=== PATIENT | male | born 1960 | race Hispanic/Latino ===

== ENCOUNTER → 2018-02-09 | Day surgery (SDC) | payer OTHER ==
[~2018-02-09] MED LIST: ACETAMINOPHEN 1000 MG/100 ML 100 ML IV ONE; ACETAMINOPHEN 1000 MG/100 ML IV ONE; BUPIVACAINE HCL 0.5% INJ 30 ML VIAL INJ ONE; CLINDAMYCIN PHOS 900MG/ 50ML 50 ML IV ONE; DEXAMETHASONE SOD PHOS INJ 4 MG/ML VIAL ONE; FAMOTIDINE 20 MG/2 ML VIAL IV ONE; FENTANYL CITRATE/PF 100MCG/2 ML INJ ONE; LEVOTHYROXINE75 MCG PO; LIDOCAINE HCL 2% LOCAL INJ 5 ML SDV VIAL INJ ONE; LISINOPRIL10 MG PO; METOCLOPRAMIDE HCL 10 MG/2ML VIAL ONE; MIDAZOLAM HCL 2 MG/2 ML VIAL ONE; MORPHINE SULFATE INJ 4 MG/ML INJ ONE; NEOSTIGMINE 1 MG/ML 10ML VIAL ONE; PROPOFOL IV EMULSION 10 MG/ML 20 ML VIAL ONE; SEVOFLURANE INHAL SOLN 250 ML PEN BTL ONE; [UNRECOGNIZED DRUG - OTHER]
[2018-02-09 12:11] VITALS: BP 100/63
--- NOTE | 2018-02-09 12:35 | Operative Report ---
DATE OF PROCEDURE: February 09, 2018 PREOPERATIVE DIAGNOSES 1. Dislocated 4th proximal interphalangeal joint right foot. 2. 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 POSTOPERATIVE DIAGNOSES 1. Dislocated 4th proximal interphalangeal joint right foot. 1. 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 OPERATIONS PERFORMED 1. Arthrodesis proximal interphalangeal joint right foot. 2. Excision of neuroma 3rd interspace right foot. 3. Use of human allograft into the space of the neuroma to prevent adhesions, to promote healing, to decrease the inflammatory response. COMPLICATIONS: None. CONDITION: Stable. PROCEDURE IN DETAIL: Under mild sedation, patient was brought to the operating room and placed on the operating table in the supine position. Following IV sedation, anesthesia was obtained with a general anesthetic. At this point, the foot was scrubbed, prepped and draped in the usual aseptic manner. The pneumatic ankle tourniquet was inflated to 250 mmHg, and the leg was lowered to the table. Arthrodesis PIPJ 4th right. Attention was then directed to the dorsal aspect of the right foot where a linear incision was made overlying the PIPJ. The incision was deepened via sharp and blunt dissection, taking care to retract or cauterize neurovascular structures as necessary. It was deepened down to the level of the tendon. The extensor tendon was then tenotomized in a transverse fashion. The PIPJ was visualized. At this point there was noted to be a cyst that was passed from the operating table and sent for pathology. There was noted to be full dislocation and exostosis. Utilizing an oscillating saw, the joint was cleared for arthrodesis down to clean viable bleeding bone. Utilizing a 3.4 x 6 mm Trilliant hammertoe implant, it was used to fixate the hammertoe. The K-wire was inserted more proximal in order to keep the position while healing. The contraction was noted to be released, and there was noted to be anatomical alignment. Attention was then directed to the 3rd intermetatarsal space where a linear incision was made overlying the interspace. The incision was deepened via sharp and blunt dissection, taking care to retract or cauterize neurovascular structures as necessary. It was deepened down to the level of the intermetatarsal ligament. The intermetatarsal ligament was transected. The neuroma at that point was noted to be very friable at the 3rd intermetatarsal space. The neuroma and its remnants were then removed and were sent from the operating table and sent for pathology. The area was then flushed with copious amounts of normal sterile saline solution. The use of human allograft was then inserted into the 3rd intermetatarsal space in order to promote healing, to prevent adhesions, to help to decrease the inflammatory response. The incisions were then closed, closing the deepest layer with 3-0 Vicryl, then 4-0 Vicryl and 4-0 nylon. A clean dressing was applied consisting of Adaptic ointment, 4 x 4's, Kerlix and an Lawrence bandage. The tourniquet was deflated. There was noted to be a hyperemic response to all the digits. Patient tolerated the procedure and anesthesia well without complications, was transported to the recovery room with vital signs stable and neurovascular status intact to both feet. Patient will be discharged home when he meets criteria. They were given instructions to be nonweightbearing, to ice and elevate the foot while at rest, to follow up with me in the office and to call the office if any questions, concerns, or any problems arise. Job#: [id number]
== END | disposition home or self-care (01) ==
LOC: OR 08:31
PROVIDERS: ATTEND Podiatrist Foot & Ankle Surgery
DX: M20.41 Other hammer toe(s) (acquired), right foot (principal); G57.61 Lesion of plantar nerve, right lower limb; Z88.0 Allergy status to penicillin; Z88.8 Allergy status to other drugs, medicaments and biological substances; G47.33 Obstructive sleep apnea (adult) (pediatric); E66.01 Morbid (severe) obesity due to excess calories; K21.9 Gastro-esophageal reflux disease without esophagitis
CPT/HCPCS: 28080; 28285; 76000; 88304; 93005; J0131; J1100; J2001; J2250; J2270; J2704; J2710; J2765; Q4150

== ENCOUNTER 2021-05-26 01:22 | Emergency (ER) | payer SELFPAY ==
[~2021-05-26] VITALS: Ht 175.3 cm; Wt 117.9 kg
[~2021-05-26 01:22] MED LIST changes: -ACETAMINOPHEN 1000 MG/100 ML 100 ML IV ONE; -ACETAMINOPHEN 1000 MG/100 ML IV ONE; -BUPIVACAINE HCL 0.5% INJ 30 ML VIAL INJ ONE; -CLINDAMYCIN PHOS 900MG/ 50ML 50 ML IV ONE; -DEXAMETHASONE SOD PHOS INJ 4 MG/ML VIAL ONE; -FAMOTIDINE 20 MG/2 ML VIAL IV ONE; -FENTANYL CITRATE/PF 100MCG/2 ML INJ ONE; -LIDOCAINE HCL 2% LOCAL INJ 5 ML SDV VIAL INJ ONE; -METOCLOPRAMIDE HCL 10 MG/2ML VIAL ONE; -MIDAZOLAM HCL 2 MG/2 ML VIAL ONE; -MORPHINE SULFATE INJ 4 MG/ML INJ ONE; -NEOSTIGMINE 1 MG/ML 10ML VIAL ONE; -PROPOFOL IV EMULSION 10 MG/ML 20 ML VIAL ONE; -SEVOFLURANE INHAL SOLN 250 ML PEN BTL ONE
[2021-05-26] MEDS ORDERED: ONDANSETRON HCL INJ 2MG/ML 2ML 2 MG/ML VIAL IV STA (01:26)
[2021-05-26] MEDS ORDERED: SODIUM CHLORIDE 0.9% 1000ML 1,000 ML IV ONE (01:30)
[2021-05-26 02:00] LABS: BASOPHILS # (AUTO) 0.1 (0.0-0.1); BASOPHILS % 0.4 % (0.0-1.0); EOSINOPHILS # (AUTO) 0.1 (0.0-0.4); EOSINOPHILS % 0.9 % (0.0-6.0); HEMATOCRIT 44.4 % (38.2-49.6); HEMOGLOBIN 15.3 g/dL (14.0-18.0); LYMPHOCYTES # (AUTO) 2.8 (1.0-3.2); LYMPHOCYTES % 23.6 % (18.0-39.1); MEAN CORPUSCULAR HEMOGLOBIN 32.2 pg (28-32); MEAN CORPUSCULAR HGB CONC 34.5 g/dL (31-35); MEAN CORPUSCULAR VOLUME 93.5 fL (81-99); MONOCYTES # (AUTO) 0.7 (0.2-0.8); MONOCYTES % 5.5 % (4.4-11.3); NEUTROPHILS # (AUTO) 8.1 (2.1-6.9); NEUTROPHILS % 68.9 % (38.7-80.0); PLATELET COUNT 258 x10e3/uL (140-360); RED BLOOD COUNT 4.75 x10e6/uL (4.3-5.7)
[2021-05-26 02:15] LABS: ALBUMIN 4.3 g/dL (3.5-5.0); ALBUMIN/GLOBULIN RATIO 1.2 (0.8-2.0); ANION GAP 13.6 mmol/L (8-16); CALCIUM 9.1 mg/dL (8.4-10.2); CREATININE, SERUM 0.98 mg/dL (0.72-1.25); POTASSIUM 3.6 mmol/L (3.5-5.1)
[2021-05-26 02:23] LABS: CREATINE KINASE MB 4.2 ng/mL (0-5.0)
[2021-05-26 03:06] VITALS: BP 148/89
== END 2021-05-26 03:05 | disposition home or self-care (01) ==
LOC: ER 01:28
DX: R11.2 Nausea with vomiting, unspecified (principal); F32.A Depression, unspecified
CPT/HCPCS: 36415; 80053; 82550; 82553; 84484; 85025; 93005; 99283; C9113; J2405; J7030

== ENCOUNTER 2021-06-05 18:53 | Inpatient (IN) | payer BC, OTHER ==
[~2021-06-05] VITALS: Ht 175.3 cm; Wt 117.9 kg
[2021-06-05] MEDS ORDERED: SODIUM CHLORIDE 0.9% 1000ML 1,000 ML IV ONE (19:15)
[2021-06-05 19:30] LABS: BASOPHILS # (AUTO) 0.1 (0.0-0.1); BASOPHILS % 0.6 % (0.0-1.0); EOSINOPHILS # (AUTO) 0.3 (0.0-0.4); EOSINOPHILS % 3.1 % (0.0-6.0); HEMOGLOBIN 15.8 g/dL (14.0-18.0); LYMPHOCYTES # (AUTO) 2.9 (1.0-3.2); LYMPHOCYTES % 26.7 % (18.0-39.1); MEAN CORPUSCULAR HEMOGLOBIN 32.4 pg (28-32); MEAN CORPUSCULAR HGB CONC 34.3 g/dL (31-35); MEAN CORPUSCULAR VOLUME 94.5 fL (81-99); MONOCYTES # (AUTO) 0.6 (0.2-0.8); MONOCYTES % 5.2 % (4.4-11.3); NEUTROPHILS # (AUTO) 6.9 (2.1-6.9); NEUTROPHILS % 63.3 % (38.7-80.0); PLATELET COUNT 255 x10e3/uL (140-360); RED BLOOD COUNT 4.87 x10e6/uL (4.3-5.7); RED CELL DISTRIBUTION WIDTH 12.9 % (11.7-14.4)
[2021-06-05 19:38] LABS: INR 0.9
[2021-06-05 19:47] LABS: ALBUMIN/GLOBULIN RATIO 1.1 (0.8-2.0); ANION GAP 12.9 mmol/L (8-16); CREATININE, SERUM 1.23 mg/dL (0.72-1.25); POTASSIUM 3.9 mmol/L (3.5-5.1)
[2021-06-05 21:14] LABS: CLARITY,URINE TURBID (CLEAR); COLOR,URINE RED (YELLOW); KETONES,URINE TRACE (NEGATIVE); LEUKOCYTE ESTERASE ,URINE NEGATIVE (NEGATIVE); NITRITE,URINE NEGATIVE (NEGATIVE); PROTEIN,URINE DIPSTICK 2+ (NEGATIVE); URINE UROBILINOGEN 1 mg/dL (0.2 - 1)
[2021-06-05 21:21] LABS: BACTERIA,URINE RARE /HPF; RBC,URINE >50 /HPF (0-5)
[2021-06-05] MEDS ORDERED: ONDANSETRON HCL INJ 2MG/ML 2ML 2 MG/ML VIAL IV PRN (22:00)
[2021-06-05] MEDS ORDERED: IOPAMIDOL 370 MG/ML 100 ML INFUS..BTL INJ ONE (23:01)
[2021-06-05 23:22] VITALS: BP 160/73
[2021-06-05 23:30] LABS: HEMATOCRIT 43.4 % (38.2-49.6)
[2021-06-05 23:32] VITALS: BP 160/73
[2021-06-05 23:40] VITALS: BP 160/73
[2021-06-06] VITALS (7 sets, daily range): BP systolic 112–167; BP diastolic 64–80
[2021-06-06] MEDS ORDERED: ONDANSETRON HCL INJ 2MG/ML 2ML 2 MG/ML VIAL IV PRN
[2021-06-06 04:58] LABS: BASOPHILS # (AUTO) 0.1 (0.0-0.1); BASOPHILS % 0.5 % (0.0-1.0); EOSINOPHILS # (AUTO) 0.1 (0.0-0.4); EOSINOPHILS % 0.9 % (0.0-6.0); HEMATOCRIT 43.1 % (38.2-49.6); HEMOGLOBIN 14.9 g/dL (14.0-18.0); LYMPHOCYTES % 16.9 % (18.0-39.1); MEAN CORPUSCULAR HEMOGLOBIN 32.3 pg (28-32); MEAN CORPUSCULAR HGB CONC 34.6 g/dL (31-35); MEAN CORPUSCULAR VOLUME 93.3 fL (81-99); MONOCYTES # (AUTO) 0.6 (0.2-0.8); MONOCYTES % 4.9 % (4.4-11.3); NEUTROPHILS # (AUTO) 8.9 (2.1-6.9); NEUTROPHILS % 75.8 % (38.7-80.0); PLATELET COUNT 237 x10e3/uL (140-360); RED BLOOD COUNT 4.62 x10e6/uL (4.3-5.7); RED CELL DISTRIBUTION WIDTH 12.7 % (11.7-14.4)
[2021-06-06 05:20] LABS: ANION GAP 11.2 mmol/L (8-16); CALCIUM 8.6 mg/dL (8.4-10.2); CREATININE, SERUM 0.83 mg/dL (0.72-1.25); POTASSIUM 4.2 mmol/L (3.5-5.1)
[2021-06-06] MEDS ORDERED: PHENYLEPH/SHARK OIL/MO/PETROL 30 GM OINT RC PRN (09:30)
[2021-06-06] MEDS: Morphine 2mg Syringe 2 MG/ML SYR IV PRN ×3 (10:08→18:35)
[2021-06-06] MEDS ORDERED: BISACODYL 10 MG SUPP PR ONE (10:30)
[2021-06-06] MEDS ORDERED: SIMETHICONE 80 MG CHEW PO PRN (11:15)
[2021-06-06] MEDS ORDERED: DONNATAL/LIDOCAINE/MAALOX 30 ML SUSP PO ONE (11:15)
[2021-06-06] MEDS: ACETAMINOPHEN 325 MG TAB PO PRN ×2 (11:16→22:40)
[2021-06-06] MEDS ORDERED: CYMBALTA30 MG PO (11:38)
[2021-06-06] MEDS: PANTOPRAZOLE SOD 40 MG TABEC PO SCH (12:07)
[2021-06-06 12:35] LABS: HEMOGLOBIN 16.2 g/dL (14.0-18.0)
[2021-06-06] MEDS ORDERED: LIDOCAINE HCL 2% LOCAL INJ 5 ML SDV VIAL INJ ONE (16:21)
[2021-06-06] MEDS ORDERED: PROPOFOL IV EMULSION 10 MG/ML 20 ML VIAL ONE (16:21)
[2021-06-06] MEDS ORDERED: DEXAMETHASONE SOD PHOS INJ 4 MG/ML SDV ONE (16:21)
[2021-06-06] MEDS ORDERED: POVIDONE IODINE 0.05% 0.05 % ML PO ONE ×2 (16:21)
[2021-06-06] MEDS ORDERED: CEFTRIAXONE 1 GM VIAL ONE (16:21)
[2021-06-06] MEDS ORDERED: ONDANSETRON HCL INJ 2MG/ML 2ML 2 MG/ML VIAL ONE (16:21)
[2021-06-06] MEDS: POLYETHYLENE GLYCOL 3350 17 GM PACK PO SCH (16:45)
[2021-06-06] MEDS ORDERED: IOPAMIDOL 370 MG/ML 100 ML INFUS..BTL INJ ONE (18:09)
[2021-06-06] MEDS: DULOXETINE HCL 30 MG DELAYED RELEASE PO SCH (19:31)
[2021-06-06 19:32] LABS: HEMATOCRIT 44.4 % (38.2-49.6); HEMOGLOBIN 15.2 g/dL (14.0-18.0)
[2021-06-06] MEDS: FLUTICASONE PROPIONATE NASAL SPRAY NS SCH (21:00)
[2021-06-07 00:18] VITALS: BP 126/56
[2021-06-07 04:59] LABS: BASOPHILS # (AUTO) 0.1 (0.0-0.1); BASOPHILS % 0.5 % (0.0-1.0); EOSINOPHILS # (AUTO) 0.1 (0.0-0.4); EOSINOPHILS % 0.9 % (0.0-6.0); HEMATOCRIT 43.3 % (38.2-49.6); HEMOGLOBIN 14.7 g/dL (14.0-18.0); LYMPHOCYTES # (AUTO) 2.2 (1.0-3.2); LYMPHOCYTES % 14.8 % (18.0-39.1); MEAN CORPUSCULAR HGB CONC 33.9 g/dL (31-35); MEAN CORPUSCULAR VOLUME 94.1 fL (81-99); MONOCYTES # (AUTO) 0.9 (0.2-0.8); MONOCYTES % 6.3 % (4.4-11.3); NEUTROPHILS # (AUTO) 11.2 (2.1-6.9); NEUTROPHILS % 76.7 % (38.7-80.0); PLATELET COUNT 249 x10e3/uL (140-360); RED CELL DISTRIBUTION WIDTH 12.9 % (11.7-14.4)
[2021-06-07 05:13] VITALS: BP 135/66
[2021-06-07 05:26] LABS: ANION GAP 11.6 mmol/L (8-16); CALCIUM 9.2 mg/dL (8.4-10.2); CREATININE, SERUM 0.94 mg/dL (0.72-1.25); MAGNESIUM 2.2 MG/DL (1.3-2.1); POTASSIUM 3.6 mmol/L (3.5-5.1)
[2021-06-07] MEDS: PANTOPRAZOLE SOD 40 MG TABEC PO SCH ×2 (07:30→13:20)
[2021-06-07 08:01] VITALS: BP 131/70
[2021-06-07 08:22] VITALS: BP 131/70
[2021-06-07] MEDS: POLYETHYLENE GLYCOL 3350 17 GM PACK PO SCH (09:00)
[2021-06-07] MEDS ORDERED: POLYETHYLENE GLYCOL 3350 17 GM PACK PO SCH (09:00)
[2021-06-07] MEDS: DULOXETINE HCL 30 MG DELAYED RELEASE PO SCH ×2 (09:00→13:20)
[2021-06-07] MEDS ORDERED: FLUTICASONE PROPIONATE NASAL SPRAY NS SCH (09:00)
[2021-06-07] MEDS ORDERED: B&O 60MG R/S 60 MG SUPP PR ONE (11:17)
[2021-06-07] MEDS ORDERED: IOHEXOL 300 MG/ML 30ML INFUS..BTL ONE (11:17)
[2021-06-07] MEDS ORDERED: B&O 60MG R/S 60 MG SUPP PR PRN (12:45)
[2021-06-07] MEDS ORDERED: FENTANYL CITRATE/PF 100MCG/2 ML INJ ONE ×2 (12:49→13:47)
[2021-06-07] MEDS: ACETAMINOPHEN 325 MG TAB PO PRN ×2 (13:19→21:19)
[2021-06-07] MEDS: LEVOFLOXACIN 500MG/D5W 100ML 100 ML IV SCH (13:19)
[2021-06-07] MEDS ORDERED: SODIUM CHLORIDE 0.9% 250ML 250 ML ONE (13:27)
[2021-06-07] MEDS ORDERED: MIDAZOLAM HCL 2 MG/2 ML VIAL ONE (13:47)
[2021-06-07] MEDS: LORATADINE 10 MG TAB PO SCH (16:07)
[2021-06-07 16:13] VITALS: BP 123/68
[2021-06-07 20:00] VITALS: BP 148/72
[2021-06-07] MEDS: FLUTICASONE PROPIONATE NASAL SPRAY NS SCH (21:00)
[2021-06-08] MEDS: PANTOPRAZOLE SOD 40 MG TABEC PO SCH (08:30)
[2021-06-08 08:36] VITALS: BP 134/65
[2021-06-08 08:39] LABS: BASOPHILS # (AUTO) 0.1 (0.0-0.1); BASOPHILS % 0.3 % (0.0-1.0); EOSINOPHILS # (AUTO) 0.1 (0.0-0.4); EOSINOPHILS % 0.3 % (0.0-6.0); HEMATOCRIT 45.7 % (38.2-49.6); HEMOGLOBIN 15.6 g/dL (14.0-18.0); LYMPHOCYTES # (AUTO) 2.7 (1.0-3.2); LYMPHOCYTES % 15.6 % (18.0-39.1); MEAN CORPUSCULAR HEMOGLOBIN 32.1 pg (28-32); MEAN CORPUSCULAR HGB CONC 34.1 g/dL (31-35); MONOCYTES # (AUTO) 0.8 (0.2-0.8); MONOCYTES % 4.3 % (4.4-11.3); NEUTROPHILS # (AUTO) 13.6 (2.1-6.9); NEUTROPHILS % 78.7 % (38.7-80.0); PLATELET COUNT 273 x10e3/uL (140-360); RED BLOOD COUNT 4.86 x10e6/uL (4.3-5.7); RED CELL DISTRIBUTION WIDTH 12.7 % (11.7-14.4)
[2021-06-08 09:00] VITALS: BP 134/65
[2021-06-08] MEDS: POLYETHYLENE GLYCOL 3350 17 GM PACK PO SCH (09:00)
[2021-06-08 09:14] LABS: ANION GAP 12.8 mmol/L (8-16); CALCIUM 9.1 mg/dL (8.4-10.2); CREATININE, SERUM 0.99 mg/dL (0.72-1.25); POTASSIUM 3.8 mmol/L (3.5-5.1)
[2021-06-08] MEDS: DULOXETINE HCL 30 MG DELAYED RELEASE PO SCH (09:16)
[2021-06-08] MEDS: LORATADINE 10 MG TAB PO SCH (09:16)
[2021-06-08] MEDS: PHENAZOPYRIDINE HCL 100 MG TAB PO PRN ×2 (12:15→21:25)
[2021-06-08 13:31] VITALS: BP 146/78
[2021-06-08] MEDS: LEVOFLOXACIN 500MG/D5W 100ML 100 ML IV SCH (15:00)
[2021-06-08 16:48] VITALS: BP 133/78
[2021-06-08 20:00] VITALS: BP 135/66
[2021-06-08] MEDS: FLUTICASONE PROPIONATE NASAL SPRAY NS SCH (21:18)
[2021-06-09] VITALS: BP 146/73
[2021-06-09] MEDS: ACETAMINOPHEN 325 MG TAB PO PRN ×2 (00:18→22:45)
[2021-06-09 06:34] LABS: BASOPHILS # (AUTO) 0.1 (0.0-0.1); BASOPHILS % 0.4 % (0.0-1.0); EOSINOPHILS # (AUTO) 0.3 (0.0-0.4); HEMATOCRIT 44.7 % (38.2-49.6); HEMOGLOBIN 15.2 g/dL (14.0-18.0); LYMPHOCYTES # (AUTO) 2.3 (1.0-3.2); LYMPHOCYTES % 19.1 % (18.0-39.1); MEAN CORPUSCULAR HEMOGLOBIN 32.3 pg (28-32); MEAN CORPUSCULAR VOLUME 95.1 fL (81-99); MONOCYTES # (AUTO) 0.8 (0.2-0.8); MONOCYTES % 6.3 % (4.4-11.3); NEUTROPHILS # (AUTO) 8.7 (2.1-6.9); NEUTROPHILS % 71.3 % (38.7-80.0); PLATELET COUNT 238 x10e3/uL (140-360); RED CELL DISTRIBUTION WIDTH 12.8 % (11.7-14.4)
[2021-06-09 06:55] LABS: ANION GAP 11.9 mmol/L (8-16); CALCIUM 8.6 mg/dL (8.4-10.2); CREATININE, SERUM 1.18 mg/dL (0.72-1.25); POTASSIUM 3.9 mmol/L (3.5-5.1)
[2021-06-09] MEDS: PHENAZOPYRIDINE HCL 100 MG TAB PO PRN ×2 (08:25→21:48)
[2021-06-09] MEDS: PANTOPRAZOLE SOD 40 MG TABEC PO SCH (08:25)
[2021-06-09] MEDS: DULOXETINE HCL 30 MG DELAYED RELEASE PO SCH (08:25)
[2021-06-09] MEDS: LORATADINE 10 MG TAB PO SCH (08:25)
[2021-06-09] MEDS: POLYETHYLENE GLYCOL 3350 17 GM PACK PO SCH (08:26)
[2021-06-09 08:34] VITALS: BP 131/80
[2021-06-09] MEDS: LEVOFLOXACIN 500MG/D5W 100ML 100 ML IV SCH (15:47)
[2021-06-09] MEDS: FLUTICASONE PROPIONATE NASAL SPRAY NS SCH (20:01)
[2021-06-09 20:16] VITALS: BP 161/68
[2021-06-09 20:22] VITALS: BP 161/68
[2021-06-09] MEDS ORDERED: CITRATE OF MAGNESIA 300ML BOTTLE PO ONE (23:00)
[2021-06-10] VITALS (7 sets, daily range): BP systolic 131–152; BP diastolic 65–88
[2021-06-10 06:14] LABS: BASOPHILS # (AUTO) 0.1 (0.0-0.1); BASOPHILS % 0.5 % (0.0-1.0); EOSINOPHILS # (AUTO) 0.3 (0.0-0.4); EOSINOPHILS % 2.5 % (0.0-6.0); HEMATOCRIT 45.6 % (38.2-49.6); HEMOGLOBIN 15.4 g/dL (14.0-18.0); LYMPHOCYTES # (AUTO) 2.7 (1.0-3.2); MEAN CORPUSCULAR HEMOGLOBIN 32.2 pg (28-32); MEAN CORPUSCULAR HGB CONC 33.8 g/dL (31-35); MEAN CORPUSCULAR VOLUME 95.4 fL (81-99); MONOCYTES # (AUTO) 0.8 (0.2-0.8); MONOCYTES % 6.3 % (4.4-11.3); NEUTROPHILS # (AUTO) 8.1 (2.1-6.9); NEUTROPHILS % 67.2 % (38.7-80.0); PLATELET COUNT 264 x10e3/uL (140-360); RED BLOOD COUNT 4.78 x10e6/uL (4.3-5.7); RED CELL DISTRIBUTION WIDTH 12.7 % (11.7-14.4)
[2021-06-10 06:30] LABS: INR 0.92; PROTHROMBIN TIME 13.2 seconds (11.9-14.5)
[2021-06-10 06:31] LABS: PARTIAL THROMBOPLASTIN TIME 31.5 seconds (23.8-35.5)
[2021-06-10 06:38] LABS: ALBUMIN/GLOBULIN RATIO 1.1 (0.8-2.0); ANION GAP 12.9 mmol/L (8-16); CALCIUM 8.9 mg/dL (8.4-10.2); CREATININE, SERUM 1.04 mg/dL (0.72-1.25); POTASSIUM 3.9 mmol/L (3.5-5.1)
[2021-06-10] MEDS: PANTOPRAZOLE SOD 40 MG TABEC PO SCH (07:30)
[2021-06-10] MEDS: DULOXETINE HCL 30 MG DELAYED RELEASE PO SCH (08:23)
[2021-06-10] MEDS: LORATADINE 10 MG TAB PO SCH (08:23)
[2021-06-10] MEDS: POLYETHYLENE GLYCOL 3350 17 GM PACK PO SCH (08:23)
[2021-06-10] MEDS ORDERED: FENTANYL CITRATE/PF 100MCG/2 ML INJ ONE ×2 (12:19→19:20)
[2021-06-10] MEDS ORDERED: MIDAZOLAM HCL 2 MG/2 ML VIAL ONE (12:19)
[2021-06-10] MEDS ORDERED: MANNITOL 25% 12.5GM/50ML 0 ML ONE (12:23)
[2021-06-10] MEDS ORDERED: SEVOFLURANE INHAL SOLN 250 ML PEN BTL ONE (13:24)
[2021-06-10] MEDS ORDERED: POVIDONE IODINE 0.05% 0.05 % ML PO ONE (13:24)
[2021-06-10] MEDS ORDERED: ATROPINE SULFATE 1 MG/ML VIAL ONE (13:24)
[2021-06-10] MEDS ORDERED: DEXAMETHASONE SOD PHOS INJ 4 MG/ML SDV ONE (13:24)
[2021-06-10] MEDS ORDERED: ONDANSETRON HCL INJ 2MG/ML 2ML 2 MG/ML VIAL ONE (13:24)
[2021-06-10] MEDS ORDERED: ROCURONIUM BROMIDE 10 MG/ML 5ML VIAL IV ONE (13:24)
[2021-06-10] MEDS ORDERED: NEOSTIGMINE 1 MG/ML 10ML VIAL ONE (13:24)
[2021-06-10] MEDS ORDERED: PROPOFOL IV EMULSION 10 MG/ML 20 ML VIAL ONE (13:24)
[2021-06-10] MEDS ORDERED: LIDOCAINE HCL 2% LOCAL INJ 5 ML SDV VIAL INJ ONE (13:24)
[2021-06-10] MEDS ORDERED: SUCCINYLCHOLINE CHLORIDE 20 MG/ML 10ML VIAL ONE (13:24)
[2021-06-10] MEDS: LEVOFLOXACIN 500MG/D5W 100ML 100 ML IV SCH (13:52)
[2021-06-10] MEDS ORDERED: ACETAMINOPHEN 1000 MG/100 ML 100 ML IV ONE (16:57)
[2021-06-10] MEDS ORDERED: MORPHINE SULFATE 1 MG/ML 30ML PCA IV PRN (19:00)
[2021-06-10] MEDS ORDERED: DIPHENHYDRAMINE HCL INJ 50 MG/ML VIAL IM PRN (19:00)
[2021-06-10] MEDS ORDERED: ONDANSETRON HCL INJ 2MG/ML 2ML 2 MG/ML VIAL IV PRN (19:00)
[2021-06-10] MEDS ORDERED: NALOXONE HCL INJ 0.4 MG/ML AMP IV PRN (19:00)
[2021-06-10] MEDS: SODIUM CHLORIDE 0.9% 250ML IRRIG IR SCH ×2 (19:00→23:00)
[2021-06-10] MEDS: D5.45%NS/KCL 20MEQ 1,000 ML IV SCH (19:00)
[2021-06-10] MEDS ORDERED: ACETAMINOPHEN 1000 MG/100 ML IV PRN (19:00)
[2021-06-10] MEDS ORDERED: ACETAMINOPHEN/CODEINE 300MG - 30MG TAB PO PRN (19:00)
[2021-06-10 19:22] LABS: BASOPHILS # (AUTO) 0.1 (0.0-0.1); BASOPHILS % 0.4 % (0.0-1.0); EOSINOPHILS % 0.2 % (0.0-6.0); HEMATOCRIT 45.1 % (38.2-49.6); HEMOGLOBIN 15.4 g/dL (14.0-18.0); LYMPHOCYTES # (AUTO) 1.2 (1.0-3.2); LYMPHOCYTES % 5.4 % (18.0-39.1); MEAN CORPUSCULAR HEMOGLOBIN 32.3 pg (28-32); MEAN CORPUSCULAR HGB CONC 34.1 g/dL (31-35); MEAN CORPUSCULAR VOLUME 94.5 fL (81-99); MONOCYTES # (AUTO) 0.3 (0.2-0.8); MONOCYTES % 1.3 % (4.4-11.3); NEUTROPHILS # (AUTO) 21.2 (2.1-6.9); NEUTROPHILS % 91.6 % (38.7-80.0); PLATELET COUNT 273 x10e3/uL (140-360); RED BLOOD COUNT 4.77 x10e6/uL (4.3-5.7); RED CELL DISTRIBUTION WIDTH 12.8 % (11.7-14.4)
[2021-06-10] MEDS ORDERED: MORPHINE SULFATE 1 MG/ML 30ML PCA ONE (19:39)
[2021-06-10 19:48] LABS: ANION GAP 13.2 mmol/L (8-16); CALCIUM 8.2 mg/dL (8.4-10.2); CREATININE, SERUM 1.09 mg/dL (0.72-1.25); POTASSIUM 4.2 mmol/L (3.5-5.1)
[2021-06-10] MEDS: FLUTICASONE PROPIONATE NASAL SPRAY NS SCH (20:36)
[2021-06-11] MEDS: SODIUM CHLORIDE 0.9% 250ML IRRIG IR SCH (03:00)
[2021-06-11 05:23] LABS: BASOPHILS % 0.2 % (0.0-1.0); HEMATOCRIT 45.8 % (38.2-49.6); HEMOGLOBIN 15.3 g/dL (14.0-18.0); LYMPHOCYTES # (AUTO) 0.8 (1.0-3.2); LYMPHOCYTES % 4.5 % (18.0-39.1); MEAN CORPUSCULAR HEMOGLOBIN 31.9 pg (28-32); MEAN CORPUSCULAR HGB CONC 33.4 g/dL (31-35); MEAN CORPUSCULAR VOLUME 95.4 fL (81-99); NEUTROPHILS # (AUTO) 16.9 (2.1-6.9); NEUTROPHILS % 89.7 % (38.7-80.0); PLATELET COUNT 288 x10e3/uL (140-360); RED CELL DISTRIBUTION WIDTH 12.7 % (11.7-14.4)
[2021-06-11] MEDS: D5.45%NS/KCL 20MEQ 1,000 ML IV SCH ×2 (05:37→16:44)
[2021-06-11 05:42] LABS: ANION GAP 11.7 mmol/L (8-16); CALCIUM 8.4 mg/dL (8.4-10.2); CREATININE, SERUM 1.36 mg/dL (0.72-1.25); MAGNESIUM 2.6 MG/DL (1.3-2.1); POTASSIUM 4.7 mmol/L (3.5-5.1)
[2021-06-11] MEDS ORDERED: SODIUM CHLORIDE 0.9% 1000ML 500 ML IV ONE (06:45)
[2021-06-11] MEDS ORDERED: MORPHINE SULFATE 1 MG/ML 30ML PCA IV PRN (07:00)
[2021-06-11] MEDS: PANTOPRAZOLE SOD 40 MG TABEC PO SCH (07:30)
[2021-06-11 08:00] VITALS: BP 138/62
[2021-06-11] MEDS: DULOXETINE HCL 30 MG DELAYED RELEASE PO SCH (08:23)
[2021-06-11] MEDS: DOCUSATE SODIUM 100 MG CAP PO SCH ×2 (08:23→16:36)
[2021-06-11] MEDS: POLYETHYLENE GLYCOL 3350 17 GM PACK PO SCH (08:23)
[2021-06-11] MEDS: LORATADINE 10 MG TAB PO SCH (08:23)
[2021-06-11 08:30] VITALS: BP 138/62
[2021-06-11] MEDS: LEVOFLOXACIN 500MG/D5W 100ML 100 ML IV SCH (11:39)
[2021-06-11 12:10] VITALS: BP 140/62
[2021-06-11 17:18] VITALS: BP 121/60
[2021-06-11 20:00] VITALS: BP 117/52
[2021-06-11] MEDS: FLUTICASONE PROPIONATE NASAL SPRAY NS SCH (21:11)
[2021-06-11] MEDS: DEXTROSE 5%/0.45% SOD CHL 1,000 ML IV SCH (21:11)
[2021-06-11 21:26] VITALS: BP 117/52
[2021-06-12] VITALS (9 sets, daily range): BP systolic 113–134; BP diastolic 54–72
[2021-06-12] MEDS: DEXTROSE 5%/0.45% SOD CHL 1,000 ML IV SCH ×2 (03:37→11:43)
[2021-06-12 05:31] LABS: BASOPHILS # (AUTO) 0.1 (0.0-0.1); BASOPHILS % 0.4 % (0.0-1.0); EOSINOPHILS # (AUTO) 0.1 (0.0-0.4); EOSINOPHILS % 0.8 % (0.0-6.0); HEMATOCRIT 40.8 % (38.2-49.6); HEMOGLOBIN 13.6 g/dL (14.0-18.0); LYMPHOCYTES # (AUTO) 2.1 (1.0-3.2); LYMPHOCYTES % 12.6 % (18.0-39.1); MEAN CORPUSCULAR HEMOGLOBIN 32.3 pg (28-32); MEAN CORPUSCULAR HGB CONC 33.3 g/dL (31-35); MEAN CORPUSCULAR VOLUME 96.9 fL (81-99); MONOCYTES # (AUTO) 1.2 (0.2-0.8); MONOCYTES % 7.3 % (4.4-11.3); NEUTROPHILS # (AUTO) 12.9 (2.1-6.9); NEUTROPHILS % 78.2 % (38.7-80.0); PLATELET COUNT 245 x10e3/uL (140-360); RED BLOOD COUNT 4.21 x10e6/uL (4.3-5.7); RED CELL DISTRIBUTION WIDTH 12.7 % (11.7-14.4)
[2021-06-12 05:44] LABS: ANION GAP 11.1 mmol/L (8-16); CALCIUM 8.1 mg/dL (8.4-10.2); CREATININE, SERUM 1.49 mg/dL (0.72-1.25); MAGNESIUM 2.2 MG/DL (1.3-2.1); POTASSIUM 4.1 mmol/L (3.5-5.1)
[2021-06-12] MEDS: PANTOPRAZOLE SOD 40 MG TABEC PO SCH (07:29)
[2021-06-12] MEDS: LORATADINE 10 MG TAB PO SCH (08:16)
[2021-06-12] MEDS: DULOXETINE HCL 30 MG DELAYED RELEASE PO SCH (08:16)
[2021-06-12] MEDS: POLYETHYLENE GLYCOL 3350 17 GM PACK PO SCH (08:16)
[2021-06-12] MEDS: DOCUSATE SODIUM 100 MG CAP PO SCH ×2 (08:16→16:48)
[2021-06-12] MEDS ORDERED: BISACODYL 10 MG SUPP PR ONE (11:00)
[2021-06-12] MEDS: BACITRACIN ZINC 15 GM OINT TOP SCH ×2 (11:30→17:36)
[2021-06-12] MEDS: LEVOFLOXACIN 500MG/D5W 100ML 100 ML IV SCH (14:35)
[2021-06-12] MEDS ORDERED: BACITRACIN ZINC 15 GM OINT TOP SCH (17:00)
[2021-06-12] MEDS ORDERED: LORAZEPAM INJ 2 MG/ML VIAL IV PRN (19:00)
[2021-06-12] MEDS: FLUTICASONE PROPIONATE NASAL SPRAY NS SCH (21:49)
[2021-06-13] MEDS: DEXTROSE 5%/0.45% SOD CHL 1,000 ML IV SCH ×3 (02:14→11:19)
[2021-06-13 04:00] VITALS: BP 117/52
[2021-06-13 05:00] LABS: BASOPHILS # (AUTO) 0.1 (0.0-0.1); BASOPHILS % 0.4 % (0.0-1.0); EOSINOPHILS # (AUTO) 0.1 (0.0-0.4); EOSINOPHILS % 0.7 % (0.0-6.0); HEMATOCRIT 45.2 % (38.2-49.6); HEMOGLOBIN 14.9 g/dL (14.0-18.0); LYMPHOCYTES # (AUTO) 2.5 (1.0-3.2); LYMPHOCYTES % 14.1 % (18.0-39.1); MEAN CORPUSCULAR HEMOGLOBIN 32.1 pg (28-32); MEAN CORPUSCULAR VOLUME 97.4 fL (81-99); MONOCYTES # (AUTO) 1.2 (0.2-0.8); MONOCYTES % 6.7 % (4.4-11.3); NEUTROPHILS # (AUTO) 13.9 (2.1-6.9); NEUTROPHILS % 76.8 % (38.7-80.0); PLATELET COUNT 272 x10e3/uL (140-360); RED BLOOD COUNT 4.64 x10e6/uL (4.3-5.7); RED CELL DISTRIBUTION WIDTH 12.3 % (11.7-14.4)
[2021-06-13 05:38] LABS: ANION GAP 12.8 mmol/L (8-16); CALCIUM 8.4 mg/dL (8.4-10.2); CREATININE, SERUM 1.31 mg/dL (0.72-1.25); POTASSIUM 3.8 mmol/L (3.5-5.1)
[2021-06-13] MEDS: PANTOPRAZOLE SOD 40 MG TABEC PO SCH (07:30)
[2021-06-13 08:00] VITALS: BP 137/73
[2021-06-13] MEDS: LORATADINE 10 MG TAB PO SCH (08:12)
[2021-06-13] MEDS: POLYETHYLENE GLYCOL 3350 17 GM PACK PO SCH (08:13)
[2021-06-13] MEDS: DOCUSATE SODIUM 100 MG CAP PO SCH ×2 (08:13→16:28)
[2021-06-13] MEDS: DULOXETINE HCL 30 MG DELAYED RELEASE PO SCH (08:13)
[2021-06-13 08:14] VITALS: BP 137/73
[2021-06-13] MEDS: BACITRACIN ZINC 15 GM OINT TOP SCH ×2 (09:24→16:28)
[2021-06-13 12:41] VITALS: BP 127/71
[2021-06-13] MEDS: LEVOFLOXACIN 500MG/D5W 100ML 100 ML IV SCH (13:50)
[2021-06-13 16:27] VITALS: BP 142/73
== END 2021-06-13 18:36 | disposition home or self-care (01) | DRG 657 ==
LOC: ER 18:57 → ERHOLD 22:02 → MED/SURG2 22:50 → OBSVTOIN 06-06 15:34 → MED/SURG 06-10 20:13
PROVIDERS: ADMIT Internal Medicine; ATTEND Internal Medicine
PROC: 0T7D8ZZ Dilation of Urethra, Via Natural or Artificial Opening Endoscopic (ICD-10-PCS; 2021-06-07)
PROC: BT141ZZ Fluoroscopy of Kidneys, Ureters and Bladder using Low Osmolar Contrast (ICD-10-PCS; 2021-06-07)
PROC: 0T788ZZ Dilation of Bilateral Ureters, Via Natural or Artificial Opening Endoscopic (ICD-10-PCS; 2021-06-07)
PROC: 0TJB8ZZ Inspection of Bladder, Via Natural or Artificial Opening Endoscopic (ICD-10-PCS; principal; 2021-06-07 12:00)
PROC: 0TT00ZZ Resection of Right Kidney, Open Approach (ICD-10-PCS; 2021-06-10)
DX: C64.1 Malignant neoplasm of right kidney, except renal pelvis (principal); C77.2 Secondary and unspecified malignant neoplasm of intra-abdominal lymph nodes; N17.9 Acute kidney failure, unspecified; R31.0 Gross hematuria; E66.9 Obesity, unspecified; Z68.38 Body mass index [BMI] 38.0-38.9, adult; N35.919 Unspecified urethral stricture, male, unspecified site; N40.1 Benign prostatic hyperplasia with lower urinary tract symptoms; R33.8 Other retention of urine; R35.1 Nocturia; Z88.0 Allergy status to penicillin; G47.33 Obstructive sleep apnea (adult) (pediatric); Z20.822 Contact with and (suspected) exposure to COVID-19
CPT/HCPCS: 36415; 71045; 71046; 71260; 74176; 74178; 74420; 80048; 80053; 81001; 83735; 84443; 84484; 85014; 85018; 85025; 85610; 85730; 86850; 86900; 88112; 88307; 88309; 94799; 99284; C1769; G0378; J0330; J0461; J0696; J1100; J1956; J2001; J2150; J2250; J2270; J2405; J2710; J3010; J7030; J7050; Q9967; U0002